=== PATIENT | female | born 1990 | race Two or more races ===

== ENCOUNTER → 2018-07-08 | Outpatient (REF) | payer BC ==
[2018-07-08 21:06] LABS: CHLAMYDIA DNA AMPLIFICATION NEGATIVE (NEGATIVE); GC DNA AMPLIFICATION NEGATIVE (NEGATIVE)
== END ==
LOC: M SFHCLERA 14:44
DX: N30.01 Acute cystitis with hematuria (principal); N89.8 Other specified noninflammatory disorders of vagina
CPT/HCPCS: 87086

== ENCOUNTER 2018-07-22 12:01 | Emergency (ER) | payer BC | END 2018-07-22 14:07 | disposition home or self-care (01) | LOC: M ED 12:01 | DX: M25.462 Effusion, left knee (principal) | CPT/HCPCS: 73564 ==

== ENCOUNTER 2019-01-18 14:10 | Emergency (ER) | payer OTHER ==
[~2019-01-18] VITALS: Ht 165.1 cm; Wt 58.6 kg
[2019-01-18] MEDS ORDERED: HUMI40IN2 INJ (14:26)
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
[2019-01-18] MEDS ORDERED: IBUPROFEN 600 MG TAB PO ONE (16:30)
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
[2019-01-18] MEDS ORDERED: IBUP-1022 PO (16:53)
[2019-01-18] MEDS ORDERED: ROBA500T PO (16:53)
[2019-01-18] MEDS ORDERED: METHOCARBAMOL 500 MG TAB PO ONE (17:00)
[2019-01-18 17:01] VITALS: BP 126/81
== END 2019-01-18 17:02 | disposition home or self-care (01) ==
LOC: EDBD 14:10 → M ED 14:10
DX: S16.1XXA Strain of muscle, fascia and tendon at neck level, initial encounter (principal); T14.8XXA Other injury of unspecified body region, initial encounter; V43.52XA Car driver injured in collision with other type car in traffic accident, initial encounter; Y92.410 Unspecified street and highway as the place of occurrence of the external cause; M06.9 Rheumatoid arthritis, unspecified; Z79.899 Other long term (current) drug therapy

== ENCOUNTER → 2020-02-24 | Outpatient (REF) | payer OTHER ==
[~2020-02-24] MED LIST: HUMI40IN2 INJ; IBUP-1022 PO; ROBA500T PO
== END ==
LOC: M SFHCLERA 14:20
PROVIDERS: ATTEND Nurse Practitioner Family
DX: R39.15 Urgency of urination (principal)